=== PATIENT | female | born 1995 | race Caucasian/White ===

== ENCOUNTER 2017-02-27 11:49 | Emergency (ER) | payer OTHER ==
[2017-02-27 11:57] VITALS: BP 111/60
[2017-02-27] MEDS ORDERED: CEPHALEXIN 500 MG CAPSULE PO ONE (12:07)
[2017-02-27] MEDS ORDERED: DIPH/PERTUSS(ACELL)/TETANUS VAC/PF 0.5 ML SYR (>=10YO) IM ONE (12:07)
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
[2017-02-27] MEDS ORDERED: SILVER SULFADIAZINE 1% CREAM 25 GM TP ONE (12:18)
== END 2017-02-27 12:20 | disposition home or self-care (01) ==
LOC: ER 11:49
DX: L03.115 Cellulitis of right lower limb (principal); T24.201A Burn of second degree of unspecified site of right lower limb, except ankle and foot, initial encounter; F17.200 Nicotine dependence, unspecified, uncomplicated; X16.XXXA Contact with hot heating appliances, radiators and pipes, initial encounter; Z23 Encounter for immunization
CPT/HCPCS: 90471; 90715; 99283